=== PATIENT | female | born 1970 | race Caucasian/White ===

== ENCOUNTER 2017-04-15 12:25 | Emergency (ER) | payer OTHER, MEDICAID ==
[2017-04-15] MEDS: ACETAMINOPHEN 325 MG TAB PO (13:49)
== END 2017-04-15 16:04 | disposition home or self-care (01) ==
LOC: FTE 12:25
DX: R07.9 Chest pain, unspecified (principal); J34.89 Other specified disorders of nose and nasal sinuses; M54.2 Cervicalgia; R07.89 Other chest pain; E11.9 Type 2 diabetes mellitus without complications; Z79.84 Long term (current) use of oral hypoglycemic drugs
CPT/HCPCS: 70160; 71045; 72040; 73630; 99284-25

== ENCOUNTER 2018-08-17 09:16 | Emergency (ER) | payer BC, OTHER ==
[2018-08-17 10:16] LABS: ADD UMIC YES; UR ASCORBIC ACID NEGATIVE (NEGATIVE); UR BILIRUBIN (Dip) NEGATIVE (NEGATIVE); UR BLOOD (Dip) 3+ mg/dL (NEGATIVE); UR CLARITY SLIGHTLY CLOUDY (CLEAR); UR COLOR STRAW (YELLOW); UR GLUCOSE (Dip) 3+ mg/dL (NEGATIVE); UR KETONES (Dip) NEGATIVE (NEGATIVE); UR LEUKOCYTE ESTERASE (Dip) 3+ Leu/ul (NEGATIVE); UR NITRITE (Dip) NEGATIVE (NEGATIVE); UR RBC 32 /HPF (0-5); UR SPECIFIC GRAVITY (Dip) 1.017 (1.003-1.030); UR TOTAL PROTEIN (Dip) NEGATIVE (NEGATIVE); UR UROBILINOGEN (Dip) NEGATIVE (NEGATIVE); UR WBC 118 /HPF (0-5)
[2018-08-17] MEDS: CEPHALEXIN 500 MG CAP PO (10:29)
[2018-08-17] MEDS: ACETAMINOPHEN 325 MG TAB PO (10:29)
[2018-08-17] MEDS: PHENAZOPYRIDINE 100 MG TAB PO (10:29)
== END 2018-08-17 10:40 | disposition home or self-care (01) ==
LOC: FTE 10:40
DX: N30.00 Acute cystitis without hematuria (principal); E11.9 Type 2 diabetes mellitus without complications; Z79.84 Long term (current) use of oral hypoglycemic drugs
CPT/HCPCS: 81001; 81025; 99283